=== PATIENT | female | born 1960 | race Caucasian/White ===

== ENCOUNTER 2018-08-15 07:34 | Day surgery (SDC) | payer OTHER, SELFPAY ==
[2018-08-08 09:08] VITALS: BMI 27.3
[2018-08-15] VITALS (7 sets, daily range): BP systolic 100–126; BP diastolic 57–77; PULSE 61–83; RESP 10–20; TEMP 36.1–36.5; O2SAT 97–100; BMI 27.3
--- NOTE | 2018-08-15 | PATH_ITS ---
[facility] Accession Number: [id number] . 01 Material submitted: . PART A: RIGHT MASS ABDOMINAL WALL PART B: LEFT MASS ABDOMINAL WALL . 02 Diagnosis: A. Mass, Right, Abdominal Wall: Lipoma (1.6 cm in greatest dimension). . B. Mass, Left Abdominal Wall: Two tissue fragments with histologic features of lipoma (4.5 cm in greatest aggregate dimension). MRV/08/16/2018 . 02 Electronically signed: . Olga Campo MD, Pathologist NPI- [id number] . 01 Gross description: . Received two formalin-filled containers both labeled with the patient's name. . A. In a container labeled right mass abdominal wall, the specimen consists of a light yellow-tong portion of soft tissue, which measures 1.6 x 1.3 x 1.0 cm. Inked blue. Two medical center representative sections are submitted in cassette A. B. In a container labeled left mass abdominal wall, the specimen consists of two yellow-tong portions of soft tissue, which aggregate to 4.5 x 2.5 x 1.5 cm. Inked blue. Four medical center representative sections are submitted in cassettes B1 and B2. ([facility]:[id number]) /[facility] . 02 Pathologist provided ICD-10: D17.9 . 02 CPT . 909054, 303274 Performed at: 01 [facility] [address] [facility] [address], [place], [place] [id number] MD Brian Louis MD Phone: [phone] Performed at: 02 [facility] [address] [place], [place] [id number] MD Emilie Landeros MD Phone: [phone]
[2018-08-15] MEDS: LACTATED RINGERS 1,000 ML 42 ML IV (08:05)
[2018-08-15] MEDS: CEFAZOLIN 2 GM/100 ML FROZ.PIGGY IV (09:46)
--- NOTE | 2018-08-15 09:51 | PM.HP.1 ---
History of Present Illness Date Patient Seen: 08/15/18 Time Patient Seen: 09:51 Chief complaint: [id number] BIOPSY/REMOVAL LYMPH NODE Narrative: A wonderful 58-year-old lady who presents today for removal of 2 lumps in her abdominal wall. She denies any changes since I last saw her in clinic. She has 1 on the right and 1 on the left and she reports both a become quite painful for her over the last year. She also reports that both grown. Patient History Medical History Anxiety (Acute) Arthritis of shoulder (Acute) Bruises easily (Acute) Depression (Acute) History of blood clots (Acute) Hyperlipidemia (Acute) Impaired vision (Acute) Nausea (Acute) Pain (Acute) Surgical History History of (Acute) History of dilatation and curettage (Acute) History of tonsillectomy (Acute) History of bilateral salpingo-oophorectomy (BSO) (09/29/14) Status post hysterectomy (09/29/14) Status post laparotomy (09/29/14) Status post surgery (07/19/13) Family & Social History Family History: Reviewed 08/15/18 by Juana Lima MD Social History: household members significant other,children Tobacco & Substance use: Smoking Status Never smoker alcohol intake never Substance Use Type does not use Meds Home Medications Medication Instructions Recorded Confirmed Type lorazepam 0.5 mg tablet 0.5 mg PO DAILY 07/17/18 08/15/18 History polyethylene glycol 3350 17 gram 1 tbsp PO DAILY 07/17/18 08/15/18 History oral powder packet simvastatin 20 mg tablet 20 mg PO DAILY 07/17/18 08/15/18 History Allergies Allergy/AdvReac Type Severity Reaction Status Date / Time acetaminophen [From Percocet] Allergy Severe Unlisted Verified 08/15/18 07:49 hydromorphone [From DILAUDID] Allergy Severe Unknown Verified 08/15/18 07:49 latex [LATEX] Allergy Severe RASH Verified 08/15/18 07:49 oxycodone [From Percocet] Allergy Severe Unlisted Verified 08/15/18 07:49 penicillin G [PENICILLIN G] Allergy Mild Unlisted Verified 08/15/18 07:49 codeine [CODEINE] Allergy Unknown Unlisted Verified 08/15/18 07:49 Review of Systems Review of Systems All systems reviewed & are unremarkable except as noted in HPI and below Exam Vital Signs (past 8 hours): - 08/15/18 07:57 Temperature 97.0 F L Pulse Rate 75 Respiratory Rate 16 Blood Pressure 115/68 Pulse Oximetry 100 Oxygen Delivery Method Room Air Narrative Exam Narrative: HEENT: Normocephalic and atraumatic, pupils equal round reactive to light accommodation with anicteric sclera Lungs: Clear to auscultation bilaterally Heart: Regular rate and rhythm Abdomen: Soft, tender to palpation on the right side just medial to the anterior superior iliac spine on the left side in the same general location but slightly inferior. There are palpable and mobile masses in both of these locations. The masses are marked. Extremities: Warm and well perfused Assessment & Plan Plan: Assessment/Plan Narrative: 58-year-old lady here for removal of 2 subcutaneous lesions in her abdominal wall. We discussed the risks and benefits of excision of these lesions in the patient expressed a desire to complete the procedure.
--- NOTE | 2018-08-15 10:04 | SUR.OPER ---
Supine on padded OR bed, head on pillow, arms secured on padded arm boards at <90 degrees abduction, legs uncrossed, safety belt at thigh, tape over blanket over lower legs.
[2018-08-15] MEDS: BUPIVACAINE 0.5% (PF) VIAL 30 ML INJ (10:12)
[2018-08-15] MEDS: LIDOCAINE 1% W/EPI INJ 20 ML INJ (10:13)
--- NOTE | 2018-08-15 10:55 | PM.OP.1 ---
Operative Date/Time/Diagnoses Date of procedure: 08/15/18 Time of procedure: 10:55 Pre-op diagnosis: Abdominal wall mass x2 Post-op diagnosis: same Procedure & Clinicians Procedure: Excision of abdominal wall masses Same procedure as scheduled: Yes Indications: Painful in a large inguinal wall masses suspicious for enlarged lymph nodes on radiographic study Surgeon: Juana Lima Anesthesia Type: General (Dr. Ott) Operative Notes Findings: 1. Right abdominal wall mass is soft and well defined and consistent with a lipoma 2. Left abdominal wall mass is less well defined but still consistent with lipoma 3. No obvious visible elements of either 1 that are consistent with lymph nodes. Closure Type: primary Specimen(s): other (1. Right abdominal mass, 2. Left abdominal wall mass) Estimated Blood Loss (mL): 5 Procedure in detail: After obtaining informed consent, the patient brought the operating room and placed in the supine position on the operating table. Following successful induction of general endotracheal anesthesia, appropriate padding of all bony prominences, and placement of appropriate monitors, the abdomen is prepped and draped in the standard surgical fashion. A time-out was held per [facility]AP protocol We began by addressing the right-sided abdominal wall mass. Both lesions had been marked preoperatively. Following infiltration with local anesthetic to create a field block, an incision was created directly over the palpable mass and carried down through the skin and subcutaneous tissue. The mass was easily palpated and delivered into the wound opening. There was no obvious neurovascular pedicle. The wound was then checked for hemostasis and closed in 2 layers. We then turned our attention to the left-sided abdominal wall mass. This was addressed with local anesthetic in the same fashion. An incision was created over it and carried down through the skin and subcutaneous tissue. A central mass was palpated and was covered with a thick tissue consistent with scar. It was fairly poorly defined and there was calcified adipose tissue around it consistent with prior trauma. The entire area was removed. The wound was checked for hemostasis and then closed in layers with Vicryl and Monocryl suture. Both incisions were dressed with Exofen. All sponge, needle, and instrument counts were correct at the conclusion of the case. The patient was allowed to awake from anesthesia without difficulty and taken to the postanesthesia care unit in good condition. Complications: none Condition: stable Disposition: PACU Plan for aftercare: 1. Discharge to home 2. Follow up me in 2 weeks
[2018-08-15] MEDS: LORazepam 2 MG/ML SYRINGE 0.5 MG IV (11:10)
--- NOTE | 2018-08-15 11:20 | SUR.PHASEII ---
pt co slight heavy feeling in chest/body. Dr aparicio aware and pt medicated with ativan as prescribed
== END 2018-08-15 11:42 | disposition home or self-care (01) ==
PROVIDERS: Family Provider Family Medicine; PCP Family Medicine; Visit Provider Surgery
PROC: (CPT 22903; principal; 2018-08-15 08:45)
DX: D17.1 Benign lipomatous neoplasm of skin and subcutaneous tissue of trunk (principal); F41.9 Anxiety disorder, unspecified; F33.41 Major depressive disorder, recurrent, in partial remission; E78.5 Hyperlipidemia, unspecified
CPT/HCPCS: 22903; 22902; J0690; J1100; J1885; J2060; J2250; J2405; J2704; J3010

== ENCOUNTER 2020-04-05 14:45 | Emergency (ER) | payer BC, OTHER, SELFPAY ==
[2020-04-05 14:50] VITALS: PULSE 81; O2SAT 99
[2020-04-05 14:51] VITALS: BP 150/62; BP 150/67; PULSE 76; PULSE 80; RESP 20; TEMP 36.6; O2SAT 97; O2SAT 99
--- NOTE | 2020-04-05 15:08 | ED_ITS ---
HPI - Chest Pain General Chief Complaint: Chest Pain Stated Complaint: Strain in chest after moving something Time Seen by Provider: 04/05/20 14:58 Source: patient Mode of arrival: Ambulatory Limitations: no limitations History of Present Illness HPI narrative: Patient is a 59-year-old female who presents with chest discomfort. It started immediately after she tried lifting a microwave out of a box she heard and felt a pop on the right side. This happened at work and now every time she moves or breathes she has pain. She has not yet taken anything for pain MD complaint: chest pain Duration: constant Related Data Home Medications Medication Instructions Recorded Confirmed lorazepam 0.5 mg tablet 0.5 mg PO DAILY 07/17/18 08/28/18 polyethylene glycol 3350 17 gram 1 tbsp PO DAILY 07/17/18 08/28/18 oral powder packet simvastatin 20 mg tablet 20 mg PO DAILY 07/17/18 08/28/18 Previous Rx's Medication Instructions Recorded tramadol 50 mg PO Q6H #10 tab 08/15/18 Allergies Allergy/AdvReac Type Severity Reaction Status Date / Time acetaminophen [From Percocet] Allergy Severe Unlisted Verified 08/15/18 07:49 hydromorphone [From DILAUDID] Allergy Severe Unknown Verified 08/15/18 07:49 latex [LATEX] Allergy Severe RASH Verified 08/15/18 07:49 oxycodone [From Percocet] Allergy Severe Unlisted Verified 08/15/18 07:49 penicillin G [PENICILLIN G] Allergy Mild Unlisted Verified 08/15/18 07:49 codeine [CODEINE] Allergy Unknown Unlisted Verified 08/15/18 07:49 Review of Systems Review of Systems Narrative: GENERAL: Denies chills, fatigue, malaise, fever, sweats, travel HEENT: Denies sinus pain, ear pain, sore throat, difficulty swallowing, neck pain RESPIRATORY: Denies dyspnea, cough, wheezing, hemoptysis, sputum. CARDIOVASCULAR: See HPI GASTROINTESTINAL: Denies nausea, vomiting, abdominal pain, diarrhea, constipation, melena. : Denies dysuria, frequency, incontinence, hematuria, urinary retention, flank pain. MUSCULOSKELETAL: Denies weakness, joint pain, or bony pain SKIN: No rash, no erythema, no pruritus NEUROLOGIC: Denies weakness, dizziness, headache, numbness, change in speech, confusion PSYCHIATRIC: No concerning psychosocial issues. 12 point review of systems is negative except for those stated above and HPI Patient History Medical History Anxiety (Acute) Arthritis of shoulder (Acute) Bruises easily (Acute) Depression (Acute) History of blood clots (Acute) Hyperlipidemia (Acute) Impaired vision (Acute) Nausea (Acute) Pain (Acute) Surgical History History of bilateral salpingo-oophorectomy (BSO) (09/29/14) History of (Acute) History of dilatation and curettage (Acute) History of tonsillectomy (Acute) Status post hysterectomy (09/29/14) Status post laparotomy (09/29/14) Status post surgery (07/19/13) Social History household members: significant other and children occupational status: employed Smoking Status: Never smoker alcohol intake: never substance use type: does not use Smoking Status: Never smoker Substance Use Type: does not use Exam Initial Vital Signs Initial Vital Signs: Vital Signs Pulse Rate 81 04/05/20 14:50 Pulse Oximetry 99 04/05/20 14:50 GENERAL: Well-appearing, well-nourished and in no acute distress. HEENT: Head atraumatic,EOMI, pupils reactive, face symmetric, moist mucous me mbranes CARDIOVASCULAR: Regular rate and rhythm without murmurs, rubs or gallops. RESPIRATORY: Breath sounds equal bilaterally, no wheezes rales or rhonchi. Pain to palpation on the right side no flail chest. ABDOMEN: Soft, nontender. Normoactive bowel sounds all 4 quadrants. No guarding or rebound. EXTREMITIES: Normal range of motion, no clubbing or edema. Neurovascularly intact NEUROLOGICAL: Alert and oriented x4.Normal gait and speech. SKIN: Warm, dry, no laceration, no petechiae, no rashes or lesions. Course Orders Ordered: ED Orders 04/05/20 14:54 EKG-12 Lead Routine 04/05/20 15:06 XR chest 2V Stat Discontinued Medications Ketorolac Tromethamine (Toradol) 30 mg IM NOW ONE Stop: 04/05/20 15:07 Last Admin: 04/05/20 15:13 Dose: 30 mg Documented by: JARED Vital Signs Vital signs: Vital Signs - 8 hr 04/05/20 14:50 04/05/20 14:51 Temperature 97.9 F Pulse Rate 81 80 Respiratory Rate 20 Blood Pressure 150/62 H Pulse Oximetry 99 99 MDM - Chest Pain Imaging Data Chest x-ray: Radiologist's Impression: PROCEDURE: XR CHEST 2V INDICATIONS: right sided pain after lifting TECHNIQUE: 2 views of the chest were acquired. COMPARISON: [facility], CHEST 1 VIEW, 11/09/2014, 14:34. FINDINGS: Surgical changes and devices: None. Lungs and pleura: Lungs are clear. No pleural effusions or pneumothorax. Mediastinum: Mediastinal contours are normal. Heart size is normal. Bones and chest wall: No suspicious bony abnormalities. Soft tissues appear unremarkable. IMPRESSION: 1. No acute cardiopulmonary disease. Dictated by: Brian Cabrera M.D. on 04/05/2020 at 16:09 Approved by: Brian Cabrera M.D. on 04/05/2020 at 16:10 ECG Data Attestation: I personally reviewed and interpreted this ECG as follows: Prior ECG tracings: available for review Interpretation: Normal sinus rhythm rate 72 p.r. interval 196 QRS 80 QTC 4622 inversion noted in V3 similar to previous EKGs no ST changes MDM Narrative Medical decision making narrative: Patient's pain started after an event this is likely musculoskeletal it is painful to palpation. Low suspicion for any cardiac problem. Patient's pain is much better after Toradol Discharge Plan Departure Patient Disposition: Home Clinical Impression: Costalchondritis Discharge Date/Time: 04/05/20 16:14 Instructions: Costochondritis Activity Restrictions/Additional Instructions: *You have been diagnosed with costochondritis *What to do: You have strained part of her chest there is no abnormality noted on your x-ray. This can still take a few weeks to heal. *Continue to take medications as directed Ibuprofen 600 mg every 6-8 hours if needed for [id number] pain *Follow up with your primary care provider in 2-3 days *Return to ER if you should have pre shortness of breath, increased pain or any new, worsening or concerning symptoms Prescriptions: No Action simvastatin 20 mg tablet 20 mg PO DAILY RF: 0 lorazepam [Ativan] 0.5 mg tablet 0.5 mg PO DAILY RF: 0 polyethylene glycol 3350 [Miralax] 17 gram powder in packet 1 tbsp PO DAILY RF: 0 tramadol 50 mg tablet 50 mg PO Q6H Qty: 10 RF: 0 Referrals: Annie Lainez PA-C [Primary Care Provider] -
[2020-04-05] MEDS: KETOROLAC 60 MG/2 ML VIAL 30 MG IM (15:13)
== END 2020-04-05 16:14 | disposition home or self-care (01) ==
PROVIDERS: Emergency Provider Emergency Medicine; Family Provider Family Medicine; PCP Physician Assistant
DX: M94.0 Chondrocostal junction syndrome [Tietze] (principal)
CPT/HCPCS: 71046; 93005; 96372; 99283; J1885

== ENCOUNTER → 2021-04-08 16:53 | Outpatient (CLI) | payer OTHER, SELFPAY ==
--- NOTE | 2021-04-08 16:54 | DI.MG.S_ITS ---
BILATERAL DIGITAL SCREENING MAMMOGRAM 3D/2D WITH CAD: 04/08/2021 CLINICAL: Routine screening. Comparison is made to exams dated: 04/13/2020 mammogram, 08/16/2019 mammogram, 07/05/2019 mammogram, and 04/09/2018 mammogram - [facility]. The tissue of both breasts is heterogeneously dense. This may lower the sensitivity of mammography. Current study was also evaluated with a Computer Aided Detection (CAD) system. No significant masses, calcifications, or other findings are seen in either breast. There has been no significant interval change. IMPRESSION: NEGATIVE There is no mammographic evidence of malignancy. A 1 year screening mammogram is recommended. This exam was interpreted at Station ID: [id number]. NOTE: For mammograms, a report in lay terms will be sent to the patient. Approximately 15% of breast malignancies will not be visualized mammographically. In the management of a palpable breast mass, a negative mammogram must not discourage biopsy of a clinically suspicious lesion. Electronically Signed By: Paul morris/andra:04/09/2021 09:07:19 letter sent: Normal Exam ACR BI-RADS Category 1: Negative 3341F
== END ==
PROVIDERS: PCP Family Medicine; Referring Provider Family Medicine; Visit Provider Family Medicine
DX: Z12.31 Encounter for screening mammogram for malignant neoplasm of breast (principal)
CPT/HCPCS: 77063; 77067

== ENCOUNTER → 2021-09-27 13:42 | Outpatient (CLI) | payer OTHER, SELFPAY ==
[2021-09-27 16:12] LABS: Add Manual Diff / Slide Review NO; Basophils Absolute Auto 0 /uL (0-100); Basophils Percent Auto 0.5 % (0-2); Eosinophils Absolute Auto 100 /uL (0-450); Hematocrit 42.5 % (36-46); Hemoglobin 14.5 g/dL (12.0-16.0); Lymphocytes Absolute Auto 2300 /uL (1100-4500); Mean Corpuscular HGB Conc 34.1 % (30-36); Mean Corpuscular Hemoglobin 30.5 PG (26-34); Mean Corpuscular Volume 89.5 fL (80-100); Monocytes Absolute Auto 400 /uL (0-900); Monocytes Percent Auto 5.9 % (3-14); Neutrophils Absolute Auto 3800 /uL (1500-7000); Neutrophils Percent Auto 57.6 % (50-75); Platelet Count 202 X10^3/uL (150-400); Red Blood Cell Count 4.75 X10^6/uL (4.0-5.2); Red Cell Distribution Width 12.9 % (11.6-14.8); White Blood Cell Count 6.6 X10^3/uL (4.5-11.0)
[2021-09-27 17:48] LABS: Alanine Aminotransferase 23 IU/L (<35); Albumin 4.4 g/dL (3.5-5.0); Albumin Globulin Ratio 1.5 (1.0-2.8); Alkaline Phosphatase 52 U/L (38-126); Aspartate Aminotransferase 24 IU/L (14-36); BUN Creatinine Ratio 19.7 (6-22); Blood Urea Nitrogen 12 mg/dL (7-17); Calcium 9.3 mg/dL (8.4-10.2); Carbon Dioxide 33 mmol/L (22-32); Chloride 104 mmol/L (98-107); Cholesterol 173 mg/dL (140-199); Estimated Glomerular Filt Rate > 60.0 mL/min (>60); Globulin 2.9 g/dL (1.7-4.1); Glucose 91 mg/dL (80-110); HDL Cholesterol 59 mg/dL (40-60); HEMOLYSIS < 15 (0-50); LDL Cholesterol Calculated 99 mg/dL (<100); Potassium 4.5 mmol/L (3.4-5.1); Sodium 139 mmol/L (137-145); Total Protein 7.3 g/dL (6.3-8.2); Triglycerides 76 mg/dL (35-150)
[2021-09-27 18:18] LABS: TSH w/ Reflex to FT4 0.98 uIU/mL (0.47-4.68)
== END ==
PROVIDERS: PCP Family Medicine; Referring Provider Family Medicine; Visit Provider Family Medicine
DX: Z00.00 Encounter for general adult medical examination without abnormal findings (principal)
CPT/HCPCS: 36415; 80053; 80061; 84443; 85025

== ENCOUNTER → 2021-10-01 11:43 | Outpatient (CLI) | payer OTHER, SELFPAY ==
--- NOTE | 2021-10-01 | DI.RAD.S_ITS ---
PROCEDURE: XR CHEST 2V INDICATIONS: SHORTNESS OF BREATH, POST-COVID, PAIN W/BREATHING TECHNIQUE: 2 views of the chest were acquired. COMPARISON: [facility], , XR CHEST 2V, 04/05/2020, 15:23. FINDINGS: Surgical changes and devices: None. Lungs and pleura: Lungs are clear. No pleural effusions or pneumothorax. Mediastinum: Mediastinal contours are normal. Heart size is normal. Bones and chest wall: No suspicious bony abnormalities. Soft tissues appear unremarkable. IMPRESSION: No acute pulmonary process. Dictated by: Caro Cardoza M.D. on 10/01/2021 at 21:08 Approved by: Caro Cardoza M.D. on 10/01/2021 at 21:08
== END ==
PROVIDERS: PCP Family Medicine; Referring Provider Registered Nurse; Visit Provider Registered Nurse
DX: R06.02 Shortness of breath (principal); R07.1 Chest pain on breathing; Z86.16 Personal history of COVID-19
CPT/HCPCS: 71046

== ENCOUNTER → 2022-04-29 11:30 | Outpatient (CLI) | payer OTHER, SELFPAY ==
--- NOTE | 2022-04-29 | DI.MG.S_ITS ---
BILATERAL DIGITAL SCREENING MAMMOGRAM 3D/2D WITH CAD: 04/29/2022 CLINICAL: Routine screening. Comparison is made to exams dated: 04/08/2021 mammogram - [facility], 04/13/2020 mammogram, 10/23/2015 mammogram, and 07/05/2019 mammogram - [facility]. Both breasts are heterogeneously dense, which may obscure small masses (category c / 51-75% glandular tissue). Current study was also evaluated with a Computer Aided Detection (CAD) system. There are benign diffuse calcifications in both breasts. No significant masses, calcifications, or other findings are seen in either breast. There has been no significant interval change. IMPRESSION: BENIGN There is no mammographic evidence of malignancy. A 1 year screening mammogram is recommended. Based on the Tyrer Cuzick model (a risk assessment model) the patient's lifetime risk is 11.9% and her 10 year risk is 5.2%. According to the ACR, ACS, and NCCN guidelines, an annual breast MRI exam along with mammogram is recommended if the patient's lifetime risk is 20% or greater. This exam was interpreted at Station ID: [id number]. NOTE: For mammograms, a report in lay terms will be sent to the patient. Approximately 15% of breast malignancies will not be visualized mammographically. In the management of a palpable breast mass, a negative mammogram must not discourage biopsy of a clinically suspicious lesion. Electronically Signed By: Zach remy/andra:04/29/2022 16:33:16 letter sent: Normal Exam ACR BI-RADS Category 2: Benign Finding(s) 3342F
== END ==
PROVIDERS: PCP Family Medicine; Referring Provider Family Medicine; Visit Provider Family Medicine
DX: Z12.31 Encounter for screening mammogram for malignant neoplasm of breast (principal)
CPT/HCPCS: 77063; 77067

== ENCOUNTER → 2022-08-22 10:59 | Outpatient (CLI) | payer OTHER, SELFPAY ==
[2022-08-23 07:37] LABS: Fecal Immunochemical Test Negative (Negative)
== END ==
PROVIDERS: PCP Family Medicine; Referring Provider Family Medicine; Visit Provider Family Medicine
DX: Z00.00 Encounter for general adult medical examination without abnormal findings (principal)
CPT/HCPCS: 82274

== ENCOUNTER → 2022-10-17 08:58 | Outpatient (CLI) | payer OTHER, SELFPAY ==
[2022-10-17 09:52] LABS: Add Manual Diff / Slide Review NO; Basophils Absolute Auto 100 /uL (0-100); Eosinophils Absolute Auto 100 /uL (0-450); Hematocrit 43.7 % (36-46); Hemoglobin 15.2 g/dL (12.0-16.0); Lymphocytes Absolute Auto 1900 /uL (1100-4500); Lymphocytes Percent Auto 36.1 % (25-40); Mean Corpuscular HGB Conc 34.8 % (30-36); Mean Corpuscular Hemoglobin 30.8 PG (26-34); Mean Corpuscular Volume 88.4 fL (80-100); Monocytes Absolute Auto 400 /uL (0-900); Monocytes Percent Auto 7.5 % (3-14); Neutrophils Absolute Auto 2800 /uL (1500-7000); Neutrophils Percent Auto 53.4 % (50-75); Platelet Count 200 X10^3/uL (150-400); Red Blood Cell Count 4.94 X10^6/uL (4.0-5.2); Red Cell Distribution Width 12.4 % (11.6-14.8); White Blood Cell Count 5.2 X10^3/uL (4.5-11.0)
[2022-10-17 10:18] LABS: Alanine Aminotransferase 19 IU/L (<35); Albumin 4.5 g/dL (3.5-5.0); Albumin Globulin Ratio 1.6 (1.0-2.8); Alkaline Phosphatase 59 U/L (38-126); Aspartate Aminotransferase 22 IU/L (14-36); BUN Creatinine Ratio 25.7 (6-22); Bilirubin Total 1.2 mg/dL (0.2-1.3); Blood Urea Nitrogen 18 mg/dL (7-17); Calcium 9.1 mg/dL (8.4-10.2); Carbon Dioxide 31 mmol/L (22-32); Chloride 102 mmol/L (98-107); Estimated Glomerular Filt Rate > 60 mL/min (>60); Globulin 2.9 g/dL (1.7-4.1); Glucose 101 mg/dL (80-110); HEMOLYSIS < 15 (0-50); Potassium 4.5 mmol/L (3.4-5.1); Sodium 139 mmol/L (137-145); Total Protein 7.4 g/dL (6.3-8.2)
[2022-10-17 10:49] LABS: TSH w/ Reflex to FT4 1.55 uIU/mL (0.47-4.68)
== END ==
PROVIDERS: PCP Family Medicine; Referring Provider Family Medicine; Visit Provider Family Medicine
DX: R10.13 Epigastric pain (principal); R10.9 Unspecified abdominal pain
CPT/HCPCS: 36415; 80053; 84443; 85025

== ENCOUNTER → 2022-12-15 08:57 | Outpatient (CLI) | payer OTHER, SELFPAY ==
[2022-12-15 10:00] LABS: Add Manual Diff / Slide Review NO; Basophils Absolute Auto 100 /uL (0-100); Basophils Percent Auto 0.9 % (0-2); Eosinophils Absolute Auto 100 /uL (0-450); Eosinophils Percent Auto 1.9 % (2-4); Hematocrit 43.5 % (36-46); Hemoglobin 15.3 g/dL (12.0-16.0); Lymphocytes Absolute Auto 1900 /uL (1100-4500); Lymphocytes Percent Auto 34.1 % (25-40); Mean Corpuscular HGB Conc 35.1 % (30-36); Mean Corpuscular Hemoglobin 31.2 PG (26-34); Mean Corpuscular Volume 88.8 fL (80-100); Monocytes Absolute Auto 400 /uL (0-900); Monocytes Percent Auto 7.1 % (3-14); Neutrophils Absolute Auto 3200 /uL (1500-7000); Platelet Count 209 X10^3/uL (150-400); Red Cell Distribution Width 12.5 % (11.6-14.8); White Blood Cell Count 5.6 X10^3/uL (4.5-11.0)
[2022-12-15 10:18] LABS: Alanine Aminotransferase 38 IU/L (<35); Albumin 4.4 g/dL (3.5-5.0); Albumin Globulin Ratio 1.6 (1.0-2.8); Alkaline Phosphatase 67 U/L (38-126); Aspartate Aminotransferase 40 IU/L (14-36); BUN Creatinine Ratio 17.2 (6-22); Blood Urea Nitrogen 11 mg/dL (7-17); Calcium 9.3 mg/dL (8.4-10.2); Carbon Dioxide 30 mmol/L (22-32); Chloride 101 mmol/L (98-107); Cholesterol 147 mg/dL (140-199); Estimated Glomerular Filt Rate > 60 mL/min (>60); Globulin 2.7 g/dL (1.7-4.1); Glucose 96 mg/dL (80-110); HDL Cholesterol 61 mg/dL (40-60); HEMOLYSIS < 15 (0-50); LDL Cholesterol Calculated 68 mg/dL (<100); Potassium 4.8 mmol/L (3.4-5.1); Sodium 138 mmol/L (137-145); Total Protein 7.1 g/dL (6.3-8.2); Triglycerides 91 mg/dL (35-150)
[2022-12-15 10:46] LABS: TSH w/ Reflex to FT4 1.43 uIU/mL (0.47-4.68)
== END ==
PROVIDERS: PCP Family Medicine; Referring Provider Family Medicine; Visit Provider Family Medicine
DX: E78.5 Hyperlipidemia, unspecified (principal); F41.9 Anxiety disorder, unspecified; G47.00 Insomnia, unspecified; K29.70 Gastritis, unspecified, without bleeding
CPT/HCPCS: 36415; 80053; 80061; 84443; 85025

== ENCOUNTER 2023-03-15 11:30 | Day surgery (SDC) | payer OTHER, SELFPAY ==
--- NOTE | 2023-03-15 | PATH_ITS ---
[facility] Accession Number: [id number] No. of containers..03 Tissue . 01 Material submitted: . PART A: duodenum - DUODENAL BIOPSY PART B: gastrointestinal site - GASTRIC BIOPSY PART C: esophagus - ESOPHAGEAL BIOPSY . 01 Clinical history: . C: R/O LARSON'S . 01 Diagnosis: A. Duodenum, Biopsy: Duodenal mucosa with no diagnostic abnormality. Negative for active inflammation, features of sprue, dysplasia, or malignancy. . B. Stomach, Biopsies: Gastric antral and body mucosa with no diagnostic abnormality. No evidence of Helicobacter organisms on H/E stain. Negative for intestinal metaplasia. Negative for dysplasia or malignancy. . C. Esophagus, Biopsy: Squamocolumnar junctional mucosa with specialized intestinal metaplasia, consistent with Larson's esophagus. Negative for dysplasia and malignancy. [facility] 03/28/2023 1323 Local . 01 Electronically signed: . Manuel Molina MD, PhD, Pathologist NPI- [id number] . 01 Gross description: . Part A: DUODENAL BIOPSY: Received in formalin is 2 fragment(s) of tong, soft tissue measuring 0.3 x 0.2 x 0.2 cm to 0.2 x 0.2 x 0.1 cm submitted entirely in 1 cassette(s) Part B: GASTRIC BIOPSY: Received in formalin is 2 fragment(s) of tong, soft tissue measuring 0.3 x 0.3 x 0.2 cm to 0.3 x 0.2 x 0.2 cm submitted entirely in 1 cassette(s) Part C: ESOPHAGEAL BIOPSY: Received in formalin is 3 fragment(s) of tong, soft tissue measuring 0.6 x 0.2 x 0.1 cm to 0.3 x 0.2 x 0.1 cm submitted entirely in 1 cassette(s) /JODY 03/20/2023 2244 Local . 01 Pathologist provided ICD-10: R10.13, K22.70 . 01 CPT . 495395, 575492, 960237 Specimen Comment: A courtesy copy of this report has been sent to [phone] Performed at: 01 [facility] [address] [place] [address], [place], [place] [id number] MD Brian Louis MD Phone: [phone]
[2023-03-15 11:41] VITALS: BP 139/72; PULSE 69; RESP 17; TEMP 36.5; O2SAT 100; BMI 25.9
[2023-03-15] MEDS: LACTATED RINGERS 1,000 ML 125 ML IV (12:01)
--- NOTE | 2023-03-15 12:12 | PM.HP.1 ---
History of Present Illness History of Present Illness Date Patient Seen: 03/15/23 Chief complaint: SDC Narrative: GE reflux bloating abdominal pain constipation need for colorectal cancer screening PFSH Medical History Anxiety Arthritis of shoulder Bruises easily Cat scratch Depression Family history of early CAD Gastritis Generalized anxiety disorder Healing wound History of blood clots Hyperlipidemia Hyperlipidemia Impaired vision Insomnia Nausea Nightmares associated with chronic post-traumatic stress disorder Pain SOB (shortness of breath) Well adult on routine health check Surgical History History of bilateral salpingo-oophorectomy (BSO) (09/29/14) History of History of dilatation and curettage History of tonsillectomy Status post hysterectomy (09/29/14) Status post laparotomy (09/29/14) Status post surgery (07/19/13) Social History household members: spouse and children occupational status: employed Smoking Status: Never smoker alcohol intake: current substance use type: does not use Meds Home Medications and Allergies Home Medications Medication Instructions Recorded Confirmed Type lorazepam 1 mg tablet 1 mg PO BEDTIME PRN sleep #60 tabs 03/15/23 03/15/23 Rx Allergies Allergy/AdvReac Type Severity Reaction Status Date / Time acetaminophen [From Percocet] Allergy Severe Unlisted Verified 12/15/22 08:01 hydromorphone [From DILAUDID] Allergy Severe Unknown Verified 12/15/22 08:01 latex [LATEX] Allergy Severe RASH Verified 12/15/22 08:01 oxycodone [From Percocet] Allergy Severe Unlisted Verified 12/15/22 08:01 prazosin Allergy Severe throat Verified 12/15/22 08:01 swelling, nightmares trazodone Allergy Severe throat Verified 12/15/22 08:01 swelling, headache penicillin G [PENICILLIN G] Allergy Mild Unlisted Verified 12/15/22 08:01 codeine [CODEINE] Allergy Unknown Unlisted Verified 12/15/22 08:01 Exam Vital Signs (past 8 hours): - 03/15/23 11:41 Temperature 97.7 F Pulse Rate 69 Respiratory Rate 17 Blood Pressure 139/72 Pulse Oximetry 100 Oxygen Delivery Method Room Air Oxygen Delivery Method Room Air Narrative Exam Narrative: Oropharynx free of lesions Chest clear to auscultation percussion Cardiac exam reveals no S3 or murmur Assessment & Plan Assessment & Plan narrative: GE reflux and need for colorectal cancer screening. Need for EGD and colonoscopy risks benefits and alternatives been explained.
--- NOTE | 2023-03-15 12:14 | P.OP.EGD&C_ITS ---
Operative Date/Time/Diagnoses Date of procedure: 03/15/23 Pre-op diagnosis: See indication and findings Procedure & Clinicians Study performed: Colonoscopy an EGD Indications: GE reflux and colorectal cancer screening Surgeon: Gisell Abraham Procedure Notes Procedure in detail: After informed consent was obtained the patient was placed in the left lateral decubitus position. The video upper scope was placed into the oropharynx and with the patient's help swelled into the esophagus. The esophagus stomach and d uodenum were carefully examined. On withdrawal, retroflexed view the GE junction was performed. The scope was removed. The patient tolerated procedure well. Patient was then turned in the colonoscope substituted. This was introduced into the rectum slowly advanced cecum. Preparation was good. On slow withdrawal mucosa was carefully examined. The scope was removed. The patient tolerated procedure well. Blood loss none Complications none Sedation mac Findings EGD 1. Grade B to C esophagitis at the GE junction. Photographs taken 2. 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 Striped gastric erythema biopsies taken to rule out Helicobacter 4. Normal duodenal bulb and sweep biopsies taken to rule out celiac Colonoscopy 1. Normal colonoscopy to cecum Will follow-up with biopsies and patient can follow up through [facility] in the GI office. If biopsies bear out that Sun's is present she will need follow-up EGD in 1- 3 years Follow-up colonoscopy should be in 10 years.
[2023-03-15 12:59] VITALS: BP 117/80; PULSE 67; RESP 14; TEMP 36.2; O2SAT 96
[2023-03-15 13:04] VITALS: BP 120/76; PULSE 60; RESP 17; O2SAT 96
[2023-03-15 13:09] VITALS: BP 121/83; PULSE 57; PULSE 58; RESP 16; O2SAT 97
[2023-03-15 13:14] VITALS: BP 121/75; PULSE 67; RESP 23; O2SAT 96
[2023-03-15 13:24] VITALS: BP 120/75; PULSE 57; RESP 12; TEMP 36.7; O2SAT 95
--- NOTE | 2023-03-15 13:40 | SUR.PHASEII ---
Patient ambulated to the bathroom, reported able to pass gas. Abdominal pain improved to 4/10.
== END 2023-03-15 13:39 | disposition home or self-care (01) ==
PROVIDERS: PCP Family Medicine; Referring Provider Internal Medicine Gastroenterology; Visit Provider Internal Medicine Gastroenterology
PROC: 0DJ08ZZ Inspection of Upper Intestinal Tract, Via Natural or Artificial Opening Endoscopic (ICD-10-PCS; CPT 43235; principal; 2023-03-15 12:30)
PROC: 0DJD8ZZ Inspection of Lower Intestinal Tract, Via Natural or Artificial Opening Endoscopic (ICD-10-PCS; CPT 45378; 2023-03-15 12:30)
DX: Z12.11 Encounter for screening for malignant neoplasm of colon (principal); K21.00 Gastro-esophageal reflux disease with esophagitis, without bleeding; K22.70 Barrett's esophagus without dysplasia
CPT/HCPCS: 45378; 43239; J2704

== ENCOUNTER → 2023-05-01 11:29 | Outpatient (CLI) | payer OTHER, SELFPAY ==
[2023-05-01 12:43] LABS: Add Manual Diff / Slide Review NO; Basophils Absolute Auto 100 /uL (0-100); Eosinophils Absolute Auto 100 /uL (0-450); Eosinophils Percent Auto 1.3 % (2-4); Hematocrit 44.2 % (36-46); Hemoglobin 15.3 g/dL (12.0-16.0); Lymphocytes Absolute Auto 2100 /uL (1100-4500); Lymphocytes Percent Auto 35.2 % (25-40); Mean Corpuscular HGB Conc 34.6 % (30-36); Mean Corpuscular Hemoglobin 31.4 PG (26-34); Mean Corpuscular Volume 90.8 fL (80-100); Monocytes Absolute Auto 300 /uL (0-900); Monocytes Percent Auto 5.9 % (3-14); Neutrophils Absolute Auto 3300 /uL (1500-7000); Neutrophils Percent Auto 56.6 % (50-75); Platelet Count 237 X10^3/uL (150-400); Red Blood Cell Count 4.87 X10^6/uL (4.0-5.2); Red Cell Distribution Width 12.9 % (11.6-14.8); White Blood Cell Count 5.9 X10^3/uL (4.5-11.0)
[2023-05-01 13:20] LABS: Alanine Aminotransferase 24 IU/L (<35); Albumin 4.5 g/dL (3.5-5.0); Albumin Globulin Ratio 1.6 (1.0-2.8); Alkaline Phosphatase 61 U/L (38-126); Aspartate Aminotransferase 26 IU/L (14-36); BUN Creatinine Ratio 26.1 (6-22); Bilirubin Total 1.1 mg/dL (0.2-1.3); Blood Urea Nitrogen 18 mg/dL (7-17); Calcium 9.6 mg/dL (8.4-10.2); Carbon Dioxide 30 mmol/L (22-32); Chloride 103 mmol/L (98-107); Estimated Glomerular Filt Rate > 60 mL/min (>60); Globulin 2.9 g/dL (1.7-4.1); Glucose 96 mg/dL (80-110); HEMOLYSIS < 15 (0-50); Potassium 4.3 mmol/L (3.4-5.1); Sodium 138 mmol/L (137-145); Total Protein 7.4 g/dL (6.3-8.2)
[2023-05-01 13:48] LABS: Thyroid Stimulating Hormone 0.771 uIU/mL (0.47-4.68)
== END ==
PROVIDERS: PCP Family Medicine; Referring Provider Family Medicine; Visit Provider Family Medicine
DX: Z00.00 Encounter for general adult medical examination without abnormal findings (principal)
CPT/HCPCS: 36415; 80053; 84443; 85025

== ENCOUNTER → 2023-05-15 07:55 | Outpatient (CLI) | payer OTHER, SELFPAY ==
--- NOTE | 2023-05-15 | DI.MG.S_ITS ---
BILATERAL DIGITAL SCREENING MAMMOGRAM 3D/2D WITH CAD: 05/15/2023 CLINICAL: Routine screening. Comparison is made to exams dated: 04/29/2022 mammogram, 04/08/2021 mammogram - [facility], and [facility]. Both breasts are heterogeneously dense, which may obscure small masses (category c / 51-75% glandular tissue). Current study was also evaluated with a Computer Aided Detection (CAD) system. There is possible architectural distortion in the left breast lower outer quadrant at anterior depth. No other significant masses, calcifications, or other findings are seen in either breast. IMPRESSION: INCOMPLETE: NEEDS ADDITIONAL IMAGING EVALUATION Left breast lower outer quadrant possible architectural distortion. Needs additional imaging evaluation. A diagnostic mammogram and ultrasound is recommended. Based on the Tyrer Cuzick model (a risk assessment model) the patient's lifetime risk is 11.5% and her 10 year risk is 5.2%. According to the ACR, ACS, and NCCN guidelines, an annual breast MRI exam along with mammogram is recommended if the patient's lifetime risk is 20% or greater. This exam was interpreted at Station ID: [id number]. NOTE: For mammograms, a report in lay terms will be sent to the patient. Approximately 15% of breast malignancies will not be visualized mammographically. In the management of a palpable breast mass, a negative mammogram must not discourage biopsy of a clinically suspicious lesion. Electronically Signed By: Sissy bobbyb/:05/15/2023 09:41:20 letter sent: Additional Imaging Needed ACR BI-RADS Category 0: Incomplete 3340F
== END ==
PROVIDERS: PCP Family Medicine; Referring Provider Family Medicine; Visit Provider Family Medicine
DX: Z12.31 Encounter for screening mammogram for malignant neoplasm of breast (principal); R92.8 Other abnormal and inconclusive findings on diagnostic imaging of breast
CPT/HCPCS: 77063; 77067

== ENCOUNTER → 2023-05-31 08:54 | Outpatient (CLI) | payer OTHER, SELFPAY ==
--- NOTE | 2023-05-31 08:56 | DI.US.S_ITS ---
LIMITED ULTRASOUND OF LEFT BREAST: 05/31/2023 CLINICAL: Patient returns today to evaluate a focal asymmetry in the left breast. Comparison is made to exams dated: 05/31/2023 mammogram, 05/15/2023 mammogram, 04/29/2022 mammogram, and 04/08/2021 mammogram - [facility]. Ultrasound of the left breast 3-5 o'clock region was performed. Ocok scale images of the real-time examination were reviewed. No significant abnormalities were seen sonographically in the left breast. No sonographic correlate to the architectural distortion in the lateral left breast. IMPRESSION: SUSPICIOUS OF MALIGNANCY Despite lack of sonographic correlate, the architectural distortion in the left breast remains suspicious as it has become more prominent. Stereotactic left breast biopsy is recommended. Findings and recommendations were discussed with the patient by Dr. Collins in person at time of exam. This exam was interpreted at Station ID: [id number]. Electronically Signed By: Cass gonsalez/:05/31/2023 11:58:20 letter sent: Biopsy Required Ultrasound BI-RADS: 4 Suspicious for malignancy
--- NOTE | 2023-05-31 08:56 | DI.MG.S_ITS ---
UNILATERAL LEFT DIGITAL DIAGNOSTIC MAMMOGRAM 3D/2D WITH ADDITIONAL VIEWS: 05/31/2023 CLINICAL: Additional evaluation requested from prior study. Comparison is made to exams dated: 04/29/2022 mammogram, 04/08/2021 mammogram - [facility], and 04/13/2020 mammogram - [facility]. The left breast is heterogeneously dense, which may obscure small masses (category c / 51-75% glandular tissue). There is irregular architectural distortion in the left breast at 3 o'clock middle depth. This is seen in additional views. This has become more prominent over several exams. No other significant masses or calcifications are seen in the breast. IMPRESSION: INCOMPLETE: NEEDS ADDITIONAL IMAGING EVALUATION The irregular architectural distortion in the left breast is suspicious of malignancy. An ultrasound is recommended to assess for sonographic correlate for biopsy. This was performed immediately following this exam. Based on the Tyrer Cuzick model (a risk assessment model) the patient's lifetime risk is 11.1% and her 10 year risk is 5.2%. According to the ACR, ACS, and NCCN guidelines, an annual breast MRI exam along with mammogram is recommended if the patient's lifetime risk is 20% or greater. This exam was interpreted at Station ID: [id number]. NOTE: For mammograms, a report in lay terms will be sent to the patient. Approximately 15% of breast malignancies will not be visualized mammographically. In the management of a palpable breast mass, a negative mammogram must not discourage biopsy of a clinically suspicious lesion. Electronically Signed By: Cass gonsalez/:05/31/2023 11:56:03 ACR BI-RADS Category 0: Incomplete 3340F
== END ==
PROVIDERS: PCP Family Medicine; Referring Provider Family Medicine; Visit Provider Family Medicine
DX: R92.8 Other abnormal and inconclusive findings on diagnostic imaging of breast (principal); N64.89 Other specified disorders of breast
CPT/HCPCS: 76642; 77065; G0279

== ENCOUNTER → 2023-09-15 09:01 | Outpatient (CLI) | payer OTHER, SELFPAY ==
[2023-09-15 09:54] LABS: Alanine Aminotransferase 26 IU/L (<35); Albumin 4.5 g/dL (3.5-5.0); Albumin Globulin Ratio 1.6 (1.0-2.8); Alkaline Phosphatase 69 U/L (38-126); Aspartate Aminotransferase 27 IU/L (14-36); BUN Creatinine Ratio 19.1 (6-22); Bilirubin Total 1.2 mg/dL (0.2-1.3); Blood Urea Nitrogen 13 mg/dL (7-17); Calcium 9.8 mg/dL (8.4-10.2); Carbon Dioxide 30 mmol/L (22-32); Chloride 102 mmol/L (98-107); Cholesterol 202 mg/dL (140-199); Estimated Glomerular Filt Rate > 60 mL/min (>60); Globulin 2.9 g/dL (1.7-4.1); Glucose 103 mg/dL (80-110); HDL Cholesterol 56 mg/dL (40-60); HEMOLYSIS < 15 (0-50); LDL Cholesterol Calculated 122 mg/dL (<100); Potassium 4.8 mmol/L (3.4-5.1); Sodium 139 mmol/L (137-145); Total Protein 7.4 g/dL (6.3-8.2); Triglycerides 118 mg/dL (35-150)
== END ==
PROVIDERS: PCP Family Medicine; Referring Provider Family Medicine; Visit Provider Family Medicine
DX: N63.23 Unspecified lump in the left breast, lower outer quadrant (principal)
CPT/HCPCS: 36415; 80053; 80061

== ENCOUNTER 2023-12-05 08:55 | Emergency (ER) | payer OTHER, SELFPAY ==
[2023-12-05 09:03] VITALS: O2SAT 99
--- NOTE | 2023-12-05 09:05 | DI.RAD.S_ITS ---
PROCEDURE: XR WRIST LT MIN 3V INDICATIONS: fall TECHNIQUE: 4 views of the wrist were acquired. COMPARISON: [facility], CR, XR HAND LT MIN 3V, 12/05/2023, 9:13. FINDINGS: Bones: No fractures or dislocations. No suspicious bony lesions. Soft tissues: No suspicious soft tissue calcifications. IMPRESSION: No visualized acute fracture or dislocation. However, if clinical concern and/or pain persist, short interval imaging followup in 7-10 days is recommended, as occult injury cannot be definitively excluded. Dictated by: Caro Cardoza M.D. on 12/05/2023 at 9:38 Approved by: Caro Cardoza M.D. on 12/05/2023 at 9:38
[2023-12-05 09:07] VITALS: BP 146/67; PULSE 75; RESP 16; TEMP 36.7; O2SAT 99; BMI 25.7
--- NOTE | 2023-12-05 09:10 | DI.RAD.S_ITS ---
PROCEDURE: XR ELBOW LT MIN 3V INDICATIONS: Fall/pain TECHNIQUE: 3 views of the elbow were acquired. COMPARISON: None. FINDINGS: Bones: No fractures or dislocations. No suspicious bony lesions. Soft tissues: No elbow joint effusion. No suspicious soft tissue calcifications. IMPRESSION: No visualized acute fracture or dislocation. However, if clinical concern and/or pain persist, short interval imaging followup in 7-10 days is recommended, as occult injury cannot be definitively excluded. Dictated by: Caro Cardoza M.D. on 12/05/2023 at 9:39 Approved by: Caro Cardoza M.D. on 12/05/2023 at 9:39
--- NOTE | 2023-12-05 09:10 | DI.RAD.S_ITS ---
PROCEDURE: XR HAND LT MIN 3V INDICATIONS: Fall/pain TECHNIQUE: 3 views of the hand(s) acquired. COMPARISON: [facility], CR, XR WRIST LT MIN 3V, 12/05/2023, 9:13. FINDINGS: Bones: No fractures or dislocations. Carpal bones are normally aligned. No suspicious bony lesions. Soft tissues: No suspicious soft tissue calcifications. IMPRESSION: No visualized acute fracture or dislocation. However, if clinical concern and/or pain persist, short interval imaging followup in 7-10 days is recommended, as occult injury cannot be definitively excluded. Dictated by: Caro Cardoza M.D. on 12/05/2023 at 9:37 Approved by: Caro Cardoza M.D. on 12/05/2023 at 9:37
--- NOTE | 2023-12-05 09:13 | ED_ITS ---
HPI - Extremity Problem General Chief complaint: Extremity Injury, Upper Stated complaint: fall, l wrist injury Time Seen by Provider: 12/05/23 09:06 Source: patient Mode of arrival: Family Vehicle History of Present Illness HPI Narrative: Patient here for complaints of left hand left wrist and left elbow pain/injury. This occurred last Monday. Patient went to check on family member at the top of the stairs. distracted her, called her name and she turned around and lost her balance and slid down on her buttocks the flight of stairs. Complains left upper extremity injury. Denies any shoulder pain. Did not hit her head. No loss of consciousness. Patient is not on any blood thinners. She has bruising to the lateral left leg and medial right leg. However denies any knee or ankle pain from this. She does not want any images of the lower extremities. There is swelling to the ulnar styloid which is new she states. No prior surgery to the left upper extremity. Patient in gown. Pants shoes and socks removed. Related Data Home Medications Medication Instructions Recorded Confirmed famotidine 40 mg tablet 40 mg PO DAILY 06/01/23 10/12/23 pantoprazole 20 mg tablet,delayed 20 mg PO DAILY 06/01/23 10/12/23 release plecanatide 3 mg tablet (Trulance) 3 mg PO DAILY 06/01/23 10/12/23 Previous Rx's Medication Instructions Recorded lovastatin 20 mg tablet 10 mg (1/2 x 20 mg) PO DAILY #90 10/04/23 tabs lorazepam 1 mg tablet 1 mg PO BID PRN sleep #120 tabs 10/23/23 Allergies Allergy/AdvReac Type Severity Reaction Status Date / Time acetaminophen [From Percocet] Allergy Severe Unlisted Verified 10/12/23 14:30 hydromorphone [From DILAUDID] Allergy Severe Unknown Verified 10/12/23 14:30 latex [LATEX] Allergy Severe RASH Verified 10/12/23 14:30 oxycodone [From Percocet] Allergy Severe Unlisted Verified 10/12/23 14:30 prazosin Allergy Severe throat Verified 10/12/23 14:30 swelling, nightmares trazodone Allergy Severe throat Verified 10/12/23 14:30 swelling, headache penicillin G [PENICILLIN G] Allergy Mild Unlisted Verified 10/12/23 14:30 codeine [CODEINE] Allergy Unknown Unlisted Verified 10/12/23 14:30 Review of Systems Review of Systems Narrative: GENERAL: negative chills, fatigue, malaise, fever, sweats. HEENT: negative sinus pain, ear pain, sore throat RESPIRATORY: negative dyspnea, cough CARDIOVASCULAR: negative chest pain, palpitations GASTROINTESTINAL: negative nausea, vomiting, abdominal pain : negative dysuria, frequency, hematuria MUSCULOSKELETAL: Positive muscle or bony pain SKIN: negative rash, skin lesions NEUROLOGIC: negative weakness, numbness ROS Unobtainable: All systems reviewed & are unremarkable except as noted in HPI and below Patient History Medical History Elevated LFTs Left breast mass Barretts esophagus Cat scratch Gastritis Insomnia Healing wound SOB (shortness of breath) Well adult on routine health check Nightmares associated with chronic post-traumatic stress disorder Family history of early CAD Hyperlipidemia Generalized anxiety disorder Impaired vision Bruises easily Depression Anxiety Nausea Pain Arthritis of shoulder History of blood clots Hyperlipidemia Surgical History History of tonsillectomy History of dilatation and curettage History of History of bilateral salpingo-oophorectomy (BSO) (09/29/14) Status post hysterectomy (09/29/14) Status post laparotomy (09/29/14) Status post surgery (07/19/13) Social History household members: spouse and children occupational status: employed Smoking Status: Never smoker alcohol intake: current substance use type: does not use Smoking Status: Never smoker alcohol intake frequency: holidays/special occasions only Substance Use Type: does not use Exam Narrative Exam Narrative: GENERAL: in no distress, not toxic not dyspneic HEAD: Normocephalic. EYES: Pupils equal round ENT: Mucous membranes moist. NECK: Trachea midline. CARDIOVASCULAR: Regular rate and rhythm RESPIRATORY: Clear to auscultation. Breath sounds equal bilaterally. No wheezes, rales, or rhonchi. GASTROINTESTINAL: Abdomen soft, non-tender EXTREMITIES: No gross deformities. Examination left lower extremities. Healing bruises to the left lateral leg as well as right medial leg. Nontender bilateral hips knees and ankles. Feet are warm soft and pink. Brisk cap refills. Light touch intact to foot and toes. No gross deformities. Examination left upper extremity nontender shoulder. Has full active range of motion at the elbow wrist with supination pronation flexion-extension. There is tenderness to the proximal forearm with healing bruise. Near the olecranon. There is tenderness and small swelling to the ulnar styloid. No gross defo rmities. Strong corporate development analyst and radial pulse with light touch intact to fingers and thumb. BACK: No flank tenderness. NEURO: AOx4. SKIN: Warm and dry PSYCH: Not anxious, is cooperative Initial Vital Signs Initial Vital Signs: Vital Signs Pulse Oximetry 99 12/05/23 09:03 Procedures Orthopedic Splinting/Casting Injury #1: Time of procedure: 10:01 Side: left Upper Extremity Injury Location: wrist Upper Extremity Immobilizer: wrist splint Post splinting neuro exam: intact and no change Post splinting vascular exam: no change Placed by: Nursing Additional Comments: Velcro wrist splint applied Course Orders Ordered: ED Orders 12/05/23 09:05 XR wrist LT min 3V Stat 12/05/23 09:10 XR elbow LT min 3V Stat XR hand LT min 3V Stat Vital Signs Vital signs: Vital Signs - 8 hr 12/05/23 09:07 Temperature 98.1 F Pulse Rate 75 Respiratory Rate 16 Blood Pressure 146/67 H Pulse Oximetry 99 Oxygen Delivery Method Room Air MDM - Extremity (Nontraumatic) Imaging Data Extremity x-ray #1: Radiologist's Impression: [address] [address] XRay Report Signed Patient: Shanique Garcia MR#: [id number] : 1960 Acct:[id number] Age/Sex: 63 / F Date of Service: 12/05/23 Loc: ED Accession Number: [id number] Procedure: XR hand LT min 3V Ordering Provider: Vipul Sherman MD PROCEDURE: XR HAND LT MIN 3V INDICATIONS: Fall/pain TECHNIQUE: 3 views of the hand(s) acquired. COMPARISON: [facility], , XR WRIST LT MIN 3V, 12/05/2023, 9:13. FINDINGS: Bones: No fractures or dislocations. Carpal bones are normally aligned. No suspicious bony lesions. Soft tissues: No suspicious soft tissue calcifications. IMPRESSION: No visualized acute fracture or dislocation. However, if clinical concern and/or pain persist, short interval imaging followup in 7-10 days is recommended, as occult injury cannot be definitively excluded. Dictated by: Caro Cardoza M.D. on 12/05/2023 at 9:37 Approved by: Caro Cardoza M.D. on 12/05/2023 at 9:37 Extremity x-ray #2: Radiologist's Impression: [address] [address] XRay Report Signed Patient: Shanique Garcia MR#: [id number] : 1960 Acct:[id number] Age/Sex: 63 / F Date of Service: 12/05/23 Loc: ED Accession Number: [id number] Procedure: XR elbow LT min 3V Ordering Provider: Vipul Sherman MD PROCEDURE: XR ELBOW LT MIN 3V INDICATIONS: Fall/pain TECHNIQUE: 3 views of the elbow were acquired. COMPARISON: None. FINDINGS: Bones: No fractures or dislocations. No suspicious bony lesions. Soft tissues: No elbow joint effusion. No suspicious soft tissue calcifications. IMPRESSION: No visualized acute fracture or dislocation. However, if clinical concern and/or pain persist, short interval imaging followup in 7-10 days is recommended, as occult injury cannot be definitively excluded. Dictated by: Caro Cardoza M.D. on 12/05/2023 at 9:39 Approved by: Caro Cardoza M.D. on 12/05/2023 at 9:39 Extremity x-ray #3: Radiologist's Impression: [address] [address] XRay Report Signed Patient: Shanique Garcia MR#: [id number] : 1960 Acct:[id number] Age/Sex: 63 / F Date of Service: 12/05/23 Loc: ED Accession Number: [id number] Procedure: XR wrist LT min 3V Ordering Provider: Vipul Sherman MD PROCEDURE: XR WRIST LT MIN 3V INDICATIONS: fall TECHNIQUE: 4 views of the wrist were acquired. COMPARISON: [facility], , XR HAND LT MIN 3V, 12/05/2023, 9:13. FINDINGS: Bones: No fractures or dislocations. No suspicious bony lesions. Soft tissues: No suspicious soft tissue calcifications. IMPRESSION: No visualized acute fracture or dislocation. However, if clinical concern and/or pain persist, short interval imaging followup in 7-10 days is recommended, as occult injury cannot be definitively excluded. Dictated by: Caro Cardoza M.D. on 12/05/2023 at 9:38 Approved by: Caro Cardoza M.D. on 12/05/2023 at 9:38 [facility] Narrative Medical decision making narrative: Patient here for complaints of left hand left wrist and left elbow pain/injury. This occurred last Monday. Patient went to check on family member at the top of the stairs. distracted her, called her name and she turned around and lost her balance and slid down on her buttocks the flight of stairs. Complains left upper extremity injury. Denies any shoulder pain. Did not hit her head. No loss of consciousness. Patient is not on any blood thinners. She has bruising to the lateral left leg and medial right leg. However denies any knee or ankle pain from this. She does not want any images of the lower extremities. There is swelling to the ulnar styloid which is new she states. No prior surgery to the left upper extremity. Patient in gown. Pants shoes and socks removed. After history and exam x-ray left wrist elbow and hand [facility] Medical records reviewed: No recent visit for this complaint Differential considered: Includes but not limited to wrist sprain strain fracture, elbow sprain strain fracture, finger fracture/sprain Imaging studies independently reviewed: X-ray left elbow left wrist left hand no acute finding Consultations: Referral provided Treatments: Wrist splint Re-evaluations: 9:56 a.m.. Reviewed results with patient. X-ray imaging are reassuring given that injury occurred 7 days ago. She does agree and desire at wrist splint. Return precautions reviewed. She will continue Tylenol ibuprofen for pain. Referral for Orthopedics will be provided. May need outpatient MRI if not improving in 2 weeks. The swelling at the ulnar styloid may be a ganglion cyst. No treatment indicated at this time for that. Discussion: Appropriate for discharge home. Exam is reassuring as well as imaging. Wrist splint applied and patient tolerated very well. Referral for Orthopedics provided. No further imaging indicated at this time. Return precautions reviewed. She desires discharge home Diagnosis: Wrist sprain elbow contusion hand contusion Discharge Plan Departure Patient Disposition: Home Clinical Impression: Other specified sprain of left wrist, initial encounter Contusion of elbow, left Qualifiers: Encounter type: initial encounter Qualified Code(s): S50.02XA - Contusion of left elbow, initial encounter Contusion of hand, left Qualifiers: Encounter type: initial encounter Qualified Code(s): S60.222A - Contusion of left hand, initial encounter Instructions: DI for Wrist Sprain, DI for Contusion Activity Restrictions/Additional Instructions: Your exam and x-ray imaging are reassuring today. No broken bones are seen. You likely have bruising to your hand and elbow. You likely sprained your wrist. Splint has been applied to wrist. Please use this for comfort until office appointment time, call Dr. Monroe office today. You may need further imaging including but not limited to CT scan or MRI of your injured areas. Continue ibuprofen or Tylenol for pain. Please elevate injured areas as needed for pain and swelling. May use cool packs to injured areas 20 minutes at time. Prescriptions: No Action lorazepam 1 mg tablet 1 mg PO BID PRN (Reason: sleep) Qty: 120 1RF Rx Instructions: Take 1-2 tablets p.o. q.h.s. as needed sleep lovastatin 20 mg tablet 10 mg PO DAILY Qty: 90 3RF famotidine 40 mg tablet 40 mg PO DAILY pantoprazole 20 mg tablet,delayed release (DR/EC) 20 mg PO DAILY Trulance 3 mg tablet 3 mg PO DAILY Referrals: Jimenez Castro DO [Primary Care Provider] - Sarahi Monroe MD [Physician] - Stand Alone Forms: Patient Portal/API
[2023-12-05 10:02] VITALS: BP 128/65; PULSE 59; RESP 18; O2SAT 99
--- NOTE | 2023-12-05 10:05 | PC.NURSE ---
Applied titan wrist splint to left wrist. Patient tolerated well.
== END 2023-12-05 10:09 | disposition home or self-care (01) ==
PROVIDERS: Emergency Provider Emergency Medicine; PCP Family Medicine
DX: S63.502A Unspecified sprain of left wrist, initial encounter (principal); S50.02XA Contusion of left elbow, initial encounter; S60.222A Contusion of left hand, initial encounter; W10.9XXA Fall (on) (from) unspecified stairs and steps, initial encounter
CPT/HCPCS: 29125; 73080; 73110; 73130; 99281; 99283

== ENCOUNTER → 2024-06-13 11:11 | Outpatient (CLI) | payer OTHER, SELFPAY ==
[2024-06-13 14:11] LABS: COVID-19 CEPHEID 4-PLEX PCR Negative (Negative); Influenza A - CEPHEID Flu A NEGATIVE (NEGATIVE); Influenza B - CEPHEID Flu B NEGATIVE (NEGATIVE); Respiratory Syncytial Virus POSITIVE (Negative)
== END ==
PROVIDERS: PCP Family Medicine; Visit Provider Family Medicine
DX: R05.1 Acute cough (principal); J20.9 Acute bronchitis, unspecified
CPT/HCPCS: 0241U

== ENCOUNTER → 2024-08-15 12:12 | Outpatient (CLI) | payer OTHER, MEDICARE, SELFPAY ==
[2024-08-15 12:38] LABS: Add Manual Diff / Slide Review NO; Basophils Absolute Auto 100 /uL (0-100); Eosinophils Absolute Auto 100 /uL (0-450); Hematocrit 45.5 % (36-46); Hemoglobin 15.6 g/dL (12.0-16.0); Lymphocytes Absolute Auto 2000 /uL (1100-4500); Lymphocytes Percent Auto 36.9 % (25-40); Mean Corpuscular HGB Conc 34.3 % (30-36); Mean Corpuscular Hemoglobin 31.9 PG (26-34); Mean Corpuscular Volume 92.9 fL (80-100); Monocytes Absolute Auto 400 /uL (0-900); Monocytes Percent Auto 6.4 % (3-14); Neutrophils Absolute Auto 3000 /uL (1500-7000); Neutrophils Percent Auto 54.7 % (50-75); Platelet Count 229 X10^3/uL (150-400); Red Blood Cell Count 4.89 X10^6/uL (4.0-5.2); Red Cell Distribution Width 12.6 % (11.6-14.8); White Blood Cell Count 5.5 X10^3/uL (4.5-11.0)
[2024-08-15 13:02] LABS: Alanine Aminotransferase 26 IU/L (<35); Albumin 4.8 g/dL (3.5-5.0); Albumin Globulin Ratio 1.7 (1.0-2.8); Alkaline Phosphatase 63 U/L (38-126); Aspartate Aminotransferase 31 IU/L (14-36); BUN Creatinine Ratio 21.7 (6-22); Blood Urea Nitrogen 18 mg/dL (7-17); Calcium 9.4 mg/dL (8.4-10.2); Carbon Dioxide 31 mmol/L (22-32); Chloride 103 mmol/L (98-107); Estimated Glomerular Filt Rate > 60 mL/min (>60); Globulin 2.8 g/dL (1.7-4.1); Glucose 104 mg/dL (80-110); HEMOLYSIS < 15 (0-50); Potassium 4.4 mmol/L (3.4-5.1); Sodium 138 mmol/L (137-145); Total Protein 7.6 g/dL (6.3-8.2)
[2024-08-15 13:20] LABS: Free T3, Triiodothyronine Free 3.14 pg/mL (2.77-5.27); Free T4, Direct Thyroxine 1.35 ng/dL (0.78-2.19)
[2024-08-15 13:33] LABS: Thyroid Stimulating Hormone 0.904 uIU/mL (0.47-4.68)
== END ==
LOC: LAB 12:19
PROVIDERS: PCP Family Medicine; Referring Provider Family Medicine; Visit Provider Family Medicine
DX: R63.5 Abnormal weight gain (principal); E78.5 Hyperlipidemia, unspecified; F41.1 Generalized anxiety disorder; R53.83 Other fatigue
CPT/HCPCS: 36415; 80053; 84439; 84443; 84481; 85025

== ENCOUNTER → 2025-02-17 11:04 | Outpatient (CLI) | payer MEDICARE, SELFPAY ==
[2025-02-17 11:36] LABS: Add Manual Diff / Slide Review NO; Hematocrit 42.6 % (36-46); Hemoglobin 15.2 g/dL (12.0-16.0); Lymphocytes Absolute Auto 2000 /uL (1100-4500); Mean Corpuscular HGB Conc 35.6 % (30-36); Mean Corpuscular Hemoglobin 31.6 PG (26-34); Mean Corpuscular Volume 88.7 fL (80-100); Platelet Count 198 X10^3/uL (150-400)
[2025-02-17 11:51] LABS: Alanine Aminotransferase 18 IU/L (<35); Albumin 4.5 g/dL (3.5-5.0); Albumin Globulin Ratio 1.7 (1.0-2.8); Alkaline Phosphatase 72 U/L (38-126); Blood Urea Nitrogen 16 mg/dL (7-17); Calcium 9.0 mg/dL (8.4-10.2); Carbon Dioxide 27 mmol/L (22-32); Chloride 104 mmol/L (98-107); Cholesterol 223 mg/dL (140-199); Estimated Glomerular Filt Rate > 60 mL/min (>60); Globulin 2.7 g/dL (1.7-4.1); Glucose 104 mg/dL (70-99); HDL Cholesterol 48 mg/dL (40-60); HEMOLYSIS 16 (0-50); Potassium 4.6 mmol/L (3.4-5.1); Sodium 137 mmol/L (137-145); Total Protein 7.2 g/dL (6.3-8.2); Triglycerides 134 mg/dL (35-150)
[2025-02-17 12:05] LABS: Free T4, Direct Thyroxine 1.25 ng/dL (0.78-2.19)
[2025-02-17 12:19] LABS: Thyroid Stimulating Hormone 0.614 uIU/mL (0.47-4.68)
== END ==
PROVIDERS: PCP Family Medicine; Referring Provider Family Medicine; Visit Provider Family Medicine
DX: Z00.00 Encounter for general adult medical examination without abnormal findings (principal); R53.83 Other fatigue
CPT/HCPCS: 36415; 80053; 80061; 84439; 84443; 85025

== ENCOUNTER → 2025-05-15 10:31 | Outpatient (CLI) | payer MEDICARE, SELFPAY ==
[2025-05-15 12:12] LABS: Add Manual Diff / Slide Review NO; Hematocrit 44.9 % (36-46); Hemoglobin 15.6 g/dL (12.0-16.0); Lymphocytes Absolute Auto 1700 /uL (1100-4500); Mean Corpuscular HGB Conc 34.8 % (30-36); Mean Corpuscular Hemoglobin 31.1 PG (26-34); Mean Corpuscular Volume 89.5 fL (80-100); Platelet Count 212 X10^3/uL (150-400)
[2025-05-15 12:49] LABS: Alanine Aminotransferase 14 IU/L (<35); Albumin 4.6 g/dL (3.5-5.0); Albumin Globulin Ratio 1.6 (1.0-2.8); Alkaline Phosphatase 69 U/L (38-126); Blood Urea Nitrogen 13 mg/dL (7-17); Calcium 9.3 mg/dL (8.4-10.2); Carbon Dioxide 28 mmol/L (22-32); Chloride 102 mmol/L (98-107); Cholesterol 234 mg/dL (140-199); Estimated Glomerular Filt Rate > 60 mL/min (>60); Globulin 2.8 g/dL (1.7-4.1); Glucose 93 mg/dL (70-99); HDL Cholesterol 56 mg/dL (40-60); HEMOLYSIS < 15 (0-50); Potassium 4.9 mmol/L (3.4-5.1); Sodium 139 mmol/L (137-145); Total Protein 7.4 g/dL (6.3-8.2); Triglycerides 117 mg/dL (35-150)
[2025-05-15 13:06] LABS: Free T3, Triiodothyronine Free 3.85 pg/mL (2.77-5.27); Free T4, Direct Thyroxine 1.75 ng/dL (0.78-2.19)
[2025-05-15 13:20] LABS: Thyroid Stimulating Hormone 0.325 uIU/mL (0.47-4.68)
== END ==
PROVIDERS: PCP Family Medicine; Referring Provider Family Medicine; Visit Provider Family Medicine
DX: Z00.00 Encounter for general adult medical examination without abnormal findings (principal); E03.9 Hypothyroidism, unspecified; E78.2 Mixed hyperlipidemia; R79.89 Other specified abnormal findings of blood chemistry
CPT/HCPCS: 36415; 80053; 80061; 84439; 84443; 84481; 85025

== ENCOUNTER → 2025-07-28 09:44 | Outpatient (CLI) | payer MEDICARE, SELFPAY ==
[2025-07-28 10:51] LABS: Add Manual Diff / Slide Review NO; Hematocrit 42.6 % (36-46); Hemoglobin 14.9 g/dL (12.0-16.0); Lymphocytes Absolute Auto 1700 /uL (1100-4500); Mean Corpuscular HGB Conc 35.0 % (30-36); Mean Corpuscular Hemoglobin 30.9 PG (26-34); Mean Corpuscular Volume 88.3 fL (80-100); Platelet Count 223 X10^3/uL (150-400)
[2025-07-28 11:01] LABS: Hemoglobin A1C% w Est Avg Glu 4.8 % (4.0-6.0)
[2025-07-28 11:28] LABS: Alanine Aminotransferase 19 IU/L (<35); Albumin 4.5 g/dL (3.5-5.0); Albumin Globulin Ratio 1.8 (1.0-2.8); Alkaline Phosphatase 65 U/L (38-126); Blood Urea Nitrogen 20 mg/dL (7-17); Calcium 9.4 mg/dL (8.4-10.2); Carbon Dioxide 28 mmol/L (22-32); Chloride 102 mmol/L (98-107); Estimated Glomerular Filt Rate > 60 mL/min (>60); Globulin 2.5 g/dL (1.7-4.1); Glucose 98 mg/dL (70-99); HEMOLYSIS 16 (0-50); Potassium 4.5 mmol/L (3.4-5.1); Sodium 138 mmol/L (137-145); Total Protein 7.0 g/dL (6.3-8.2)
[2025-07-28 11:45] LABS: Free T4, Direct Thyroxine 1.89 ng/dL (0.78-2.19)
[2025-07-28 12:00] LABS: Thyroid Stimulating Hormone < 0.015 uIU/mL (0.47-4.68)
== END ==
PROVIDERS: PCP Family Medicine; Referring Provider Family Medicine; Visit Provider Family Medicine
DX: E03.9 Hypothyroidism, unspecified (principal); R53.82 Chronic fatigue, unspecified; E87.5 Hyperkalemia
CPT/HCPCS: 36415; 80053; 83036; 84439; 84443; 85025